=== PATIENT | male | born 1955 | race Caucasian/White ===

== ENCOUNTER 2021-07-09 07:50 | Emergency (ER) | payer MEDICARE, BC ==
[~2021-07-09] VITALS: Ht 182.9 cm; Wt 123.2 kg
--- NOTE | 2021-07-09 08:36 | EKG ---
[address] [address] Test Date: 2021-07-09 Test Time: 08:31:37 Pat Name: JEB HSIEH Department: Room: Gender: M Freight Booker: ELEUTERIO : 1955 Requested By: RACIEL WHITNEY Order Number: [id number] Reading MD: Chetan Petersen Measurements Intervals [place] Rate: 66 P: 34 TN: 170 QRS: -49 QRSD: 118 T: 69 QT: 440 QTc: 463 Interpretive Statements SINUS RHYTHM ABNORMAL LEFT AXIS DEVIATION LEFT ANTERIOR FASCICULAR BLOCK Electronically Signed On 07-12-2021 16:36:10 HAND STONECUTTER by Chetan Petersen
--- NOTE | 2021-07-09 08:49 | PHYS DOC ---
Past History Past Surgical History: Other Additional Past Surgical Histo: artificial heart valve, angelica-en-y, lumbar, Alcohol Use: None General Adult EDM: Chief Complaint: ABDOMINAL PAIN HPI: HPI: 65-year-old male past medical history of aortic valve replacement on Coumadin since 2011, [id number] diabetes, hypertension, hyperlipidemia and morbid obesity, presents the ED with his , (patient consents to his/her/their knowledge and involvement in pts' medical care), with complaints of painful bruising over his abdomen for the past few days with associated nausea, dizziness and lack of appetite. Reports he checks his INR every Thursday- was 4.1 yesterday and held his Coumadin last night. Was told to take 5 mg today and tomorrow and then go back to his normal dose of 7.5 mg. States he was seen at [facility] for cough, sneezing and runny nose 1 week ago. Was told he had the common cold. Was not tested for Covid or influenza. Was prescribed Augmentin and Tessalon Perles and told he had an ear infection. Patient's last bowel movement was on Thursday, normal brown color. Past surgical history of lumbar 1 and 5 fusion and Angelica-en-Y surgery in 2007. Has been vaccinated for Covid. Has not had his influenza vaccine. Denies any history of alcohol abuse. Review of Systems: Review of Systems: Constitutional: Denies fever or chills Eyes: Denies change in visual acuity HENT: Denies nasal congestion or sore throat Respiratory: Denies cough or shortness of breath Cardiovascular: Denies chest pain or edema GI: Denies vomiting, bloody stools or diarrhea : Denies dysuria or hematuria Musculoskeletal: Denies back pain or joint pain Integument: Denies desquamation or blistering lesions Neurologic: Denies headache, focal weakness or sensory changes Endocrine: Denies polyuria or polydipsia Lymphatic: Denies swollen glands Psychiatric: Denies depression or anxiety Current Medications: Current Meds: Current Medications Medications (Trade) Dose Ordered Sig/Robert Start Time Stop Time Status Last Admin Dose Admin Iohexol (Omnipaque 300 Mg/ml) 75 ml 1X ONCE 07/09/21 08:30 07/09/21 08:31 DC Sodium Chloride 1,000 ml @ 1,000 mls/hr 1X ONCE 07/09/21 08:30 07/09/21 09:29 Allergies: Allergies: Allergies Coded Allergies Type Severity Reaction Last Updated Verified latex Allergy Unknown 07/09/21 Yes Physical Exam: PE: Constitutional: Well developed, well nourished, no acute distress, non-toxic appearance. HENT: Normocephalic, atraumatic, Eyes: EOMI, conjunctiva normal, no discharge. Neck: Normal range of motion, supple, Cardiovascular: S1/2 present, regular rhythm Lungs & Thorax: Speaking in full sentences, bilateral equal chest rise, no tachypnea or increased work of breathing Abdomen: soft, yellow bruising over right upper quadrant and mid and upper abdomen with painful 5x10cm mass/lump, petechiae contusions over right lower abdomen and in right lower mid axillary line, no farmer turners sign, + reports ruq and epigastric palpation causes pain at bruising sites Skin: Warm, dry, Back: No tenderness, no CVA tenderness. [] Extremities: No tenderness, no cyanosis, no unilateral lower extremity edema ( h/o LLE infected hematoma), varicose veins and hemosiderin deposition/vascular disease present Neurologic: Alert and oriented X 3, normal motor function, normal sensory function, no focal deficits noted. [] Psychologic: Affect normal, judgement normal, mood normal. [] Current Patient Data: Vital Signs: Vital Signs Date Time Temp Pulse Resp B/P (MAP) Pulse Ox O2 Delivery O2 Flow Rate FiO2 07/09/21 08:07 98.0 74 16 97 Room Air EKG: EKG: Sinus rhythm 66 bpm, left axis deviation, QTC 463, T wave inversion aVL, no ST elevation or ST depression, no active chest pain Radiology/Procedures: Radiology/Procedures: [] IMAGING REPORT Signed PATIENT: JEB HSIEH LACCOUNT: [id number] : 1955 LOCATION: ER AGE: 65 SEX: M EXAM STATUS: REG ER ORD. PHYSICIAN: RACIEL WHITNEY DO REASON: upper abd pain w/bruising on coumadin. REDUCED OMNI 300 60 ML PROCEDURE: CT ABD PELV W/ IV CONTRST ONLY CT ABDOMEN+PELVIS W History: Reason: upper abd pain w/bruising on coumadin. REDUCED OMNI 300 60 ML / Spl. Instructions: / History: Technique: After the administration of intravenous contrast, CT imaging was performed of the abdomen and pelvis. Multiplanar images are reviewed. Exposure: One or more of the following individualized dose reduction techniques were utilized for this examination: 1. Automated exposure control 2. Adjustment of the mA and/or kV according to patient size 3. Use of iterative reconstruction technique. Comparison: None Findings: Lower chest: 4 mm left lower lobe pleural-based nodule (series 2 image 6. 2 mm left lower lobe pulmonary nodule (image 8). Small hiatal hernia. Abdomen and pelvis: The liver, spleen, adrenal glands, pancreas and gallbladder are unremarkable. No biliary ductal dilatation. Punctate nonobstructing right inferior intrarenal calculus. No hydronephrosis. Small left inferior renal hypodensity measures 0.6 cm, likely cyst. Normal appendix. No evidence of bowel obstruction. Postop changes gastric bypass. No pathologic lymphadenopathy. No ascites. Right rectus sheath hematoma measures up to 5.3 cm anterior posterior by 9.9 cm transverse by 11.5 cm craniocaudal. There are fluid fluid levels within the hematoma, can be seen with anticoagulation use. No active contrast extravasation noted. There is right lateral and right anterior abdominal wall subcutaneous edema. Small fat-containing umbilical hernia. Moderate atheromatous plaque throughout the nonaneurysmal abdominal aorta and branch vessels. Bones: Subacute left sixth and seventh anterior rib fractures. Chronic right- sided rib fractures. Multilevel thoracolumbar spondylosis most prominent L2-L3 with canal narrowing.. Chronic L3 compression fracture. Impression: 1. Right rectus sheath hematoma with fluid fluid levels. No active contrast extravasation. Recommend follow-up. 2. Anterior and lateral abdominal wall subcutaneous edema, may relate to contusions. 3. Subacute left sixth and seventh anterior rib fractures. 4. Small nonobstructing right inferior intrarenal calculus. Electronically signed by: Flash Carson DO (07/09/2021 9:54 AM) [id number] DICTATED AND SIGNED BY: FLASH CARSON DO DATE: 07/09/21 0941 CC: RACIEL WHITNEY DO; DEMETRIUS SERNA ~MTH0 0 IMAGING REPORT Signed PATIENT: JEB HSIEH LACCOUNT: [id number] : 1955 LOCATION: ER AGE: 65 SEX: M EXAM STATUS: REG ER ORD. PHYSICIAN: RACIEL WHITNEY DO REASON: ruq pain PROCEDURE: CHEST AP ONLY XR CHEST 1V History: Reason: ruq pain / Spl. Instructions: / History: Comparison: None. Findings: No consolidation or pleural effusion. Normal heart size. No pneumothorax. Chronic left-sided rib fractures. Advanced glenohumeral DJD. Prior median sternotomy. Chronic left midclavicular fracture. Impression: 1. No acute cardiopulmonary process. Electronically signed by: Flash Carson DO (07/09/2021 8:51 AM) [id number] DICTATED AND SIGNED BY: FLASH CARSON DO DATE: 07/09/21849 CC: RACIEL WHITNEY DO; DEMETRIUS SERNA ~MTH0 0 Heart Score: C/O Chest Pain: No Risk Factors: Risk Factors: DM, Current or recent (<one month) smoker, HTN, HLP, family history of CAD, obesity. Risk Scores: Score 0 - 3: 2.5% MACE over next 6 weeks - Discharge Home Score 4 - 6: 20.3% MACE over next 6 weeks - Admit for Clinical Observation Score 7 - 10: 72.7% MACE over next 6 weeks - Early Invasive Strategies Course & Med Decision Making: Course & Med Decision Making Pertinent Labs and Imaging studies reviewed. (See chart for details) Concern for large rectus sheath hematoma in the setting of supratherapeutic INR, renal insufficiency, normocytic anemia and lactic acidosis with no prior levels for comparison. Patient resting comfortably in the emergency department. Is hemodynamically stable-map remains above 65. Will admit for further medical management and monitoring. Will transfer to [facility] for higher level of care/surgical and IR services. Patient accepted by Dr. Skelton. Patient stable at time of transfer and him and his agree with this plan. I have spoken with the patient and/or caregivers. I have explained the p atient's condition, diagnosis and treatment plan based on the information available to me at this time. I have answered the patient's and/or caregivers questions and answered any concerns. The patient and/or caregivers have as good an understanding of the patient's diagnosis, condition and treatment plan as can be expected at this point. The patient has been stabilized within the capability of the emergency department. The patient will be transported for further care and management or will be moved to an observation or inpatient service. I have communicated with the staff or medical practitioner taking over this patient's care. Marcela Disclaimer: Marcela Disclaimer: This electronic medical record was generated, in whole or in part, using a voice recognition dictation system. Departure Departure: Impression: Primary Impression: Abdominal wall hematoma Additional Impressions: Elevated INR Renal insufficiency Lactic acidosis Normocytic anemia Disposition: 02 [facility] (To [facility], accepted by Dr. Skelton) Condition: STABLE Referrals: DEMETRIUS SERNA (PCP) RACIEL WHITNEY DO Jul 09, 2021 08:49
--- NOTE | 2021-07-09 08:54 | RAD ---
XR CHEST 1V History: Reason: ruq pain / Spl. Instructions: / History: Comparison: None. Findings: No consolidation or pleural effusion. Normal heart size. No pneumothorax. Chronic left-sided rib frac tures. Advanced glenohumeral DJD. Prior median sternotomy. Chronic left midclavicular fracture. Impression: 1. No acute cardiopulmonary process. Electronically signed by: Flash Carson DO (07/09/2021 8:51 AM) [id number]
[2021-07-09 08:58] LABS: BASO % 0 % (0-3); EOS # 0.1 x10^3/uL (0.0-0.7); EOS % 1 % (0-3); HEMATOCRIT 32.9 % (39.0-53.0); HEMOGLOBIN 10.7 g/dL (13.0-17.5); LYMPH # 0.7 x10^3/uL (1.0-4.8); LYMPH % 8 % (24-48); MEAN CORPUSCULAR HEMOGLOBIN 26 pg (25-35); MEAN CORPUSCULAR HGB CONC 33 g/dL (31-37); MEAN CORPUSCULAR VOLUME 81 fL (79-100); MONO % 11 % (0-9); NEUT # 7.6 x10^3uL (1.8-7.7); NEUT % 80 % (31-73); PLATELET COUNT 229 x10^3/uL (140-400); RED BLOOD COUNT 4.07 x10^6/uL (4.30-5.70); RED CELL DISTRIBUTION WIDTH 16.9 % (11.5-14.5); WHITE BLOOD COUNT 9.5 x10^3/uL (4.0-11.0)
[2021-07-09] MEDS: IV NORMAL SALINE 1,000ML 1,000 ML IV ONE (09:06)
[2021-07-09 09:09] LABS: CALCIUM 8.5 mg/dL (8.5-10.1); CREATININE 1.4 mg/dL (0.7-1.3); GFR 50.9; POTASSIUM 4.3 mmol/L (3.5-5.1)
[2021-07-09 09:15] LABS: ALBUMIN 3.3 g/dL (3.4-5.0); TOTAL BILIRUBIN 1.1 mg/dL (0.2-1.0); TOTAL PROTEIN 6.5 g/dL (6.4-8.2)
[2021-07-09 09:15] LABS: INFLUENZA A PATIENT NEGATIVE (NEGATIVE); INFLUENZA B PATIENT NEGATIVE (NEGATIVE)
[2021-07-09] MEDS: IOHEXOL 300 MG/ML 75 ML VIAL. IV ONE (09:17)
--- NOTE | 2021-07-09 09:56 | RAD ---
CT ABDOMEN+PELVIS W History: Reason: upper abd pain w/bruising on coumadin. REDUCED OMNI 300 60 ML / Spl. Instructions: / History: Technique: After the administration of intravenous contrast, CT imaging was performed of the abdomen and pelvis. Multiplanar images are reviewed. Exposure: One or more of the following individualized dose reduction techniques were utilized for thi s examination: 1. Automated exposure control 2. Adjustment of the mA and/or kV according to patient size 3. Use of iterative reconstruction technique. Comparison: None Findings: Lower chest: 4 mm left lower lobe pleural-based nodule (series 2 image 6. 2 mm left lower lobe pulmon tino nodule (image 8). Small hiatal hernia. Abdomen and pelvis: The liver, spleen, adrenal glands, pancreas and gallbladder are unremarkable. No biliary ductal dilatation. Punctate nonobstructing right inferior intrarenal calculus. No hydronephrosis. Small left inferior re nal hypodensity measures 0.6 cm, likely cyst. Normal appendix. No evidence of bowel obstruction. Postop changes gastric bypass. No pathologic lymph adenopathy. No ascites. Right rectus sheath hematoma measures up to 5.3 cm anterior posterior by 9.9 cm transverse by 11.5 cm craniocaudal. There are fluid fluid levels within the hematoma, can be seen with anticoagulation use . No active contrast extravasation noted. There is right lateral and right anterior abdominal wall tinsley bcutaneous edema. Small fat-containing umbilical hernia. Moderate atheromatous plaque throughout the nonaneurysmal abdominal aorta and branch vessels. Bones: Subacute left sixth and seventh anterior rib fractures. Chronic right-sided rib fractures. Mul tilevel thoracolumbar spondylosis most prominent L2-L3 with canal narrowing.. Chronic L3 compression fracture. Impression: 1. Right rectus sheath hematoma with fluid fluid levels. No active contrast extravasation. Recommend follow-up. 2. Anterior and lateral abdominal wall subcutaneous edema, may relate to contusions. 3. Subacute left sixth and seventh anterior rib fractures. 4. Small nonobstructing right inferior intrarenal calculus. Electronically signed by: Flash Carson DO (07/09/2021 9:54 AM) [id number]
[2021-07-09 11:43] LABS: BACTERIA,URINE 0 /HPF (0-FEW); BILIRUBIN,URINE NEG (NEG); CLARITY,URINE CLEAR; COLOR,URINE YELLOW; GLUCOSE,URINE >=1000 mg/dL (NEG); NITRITE,URINE NEG (NEG); RBC,URINE OCC /HPF (0-2); SQUAMOUS EPITHELIAL CELL,UR FEW /LPF; UROBILINOGEN,URINE 0.2 mg/dL (0.2 mg/dL)
[2021-07-09] MEDS: HYDROmorphone PF 1 MG/ML DISP.SYRIN IVP ONE ×3 (13:12→17:23)
[2021-07-09] MEDS ORDERED: ONDANSETRON PF 4 MG/2 ML VIAL. ONE (19:30)
[2021-07-09] MEDS: ONDANSETRON PF 4 MG/2 ML VIAL. IVP ONE ×2 (19:56→19:58)
[2021-07-10] MEDS ORDERED: HYDROmorphone PF 1 MG/ML DISP.SYRIN ONE (02:27)
[2021-07-10] MEDS: IV RINGERS SOLUTION,LACTATED 1,000 ML IV ONE (02:35)
[2021-07-10] MEDS: HYDROmorphone PF 1 MG/ML DISP.SYRIN IVP ONE ×3 (02:40→18:14)
[2021-07-10 08:11] LABS: CALCIUM 8.7 mg/dL (8.5-10.1); CREATININE 1.7 mg/dL (0.7-1.3); GFR 40.7; POTASSIUM 4.9 mmol/L (3.5-5.1)
[2021-07-10 08:13] LABS: BASO % 0 % (0-3); EOS % 0 % (0-3); HEMATOCRIT 29.3 % (39.0-53.0); HEMOGLOBIN 9.3 g/dL (13.0-17.5); LYMPH # 1.1 x10^3/uL (1.0-4.8); LYMPH % 6 % (24-48); MEAN CORPUSCULAR HEMOGLOBIN 26 pg (25-35); MEAN CORPUSCULAR HGB CONC 32 g/dL (31-37); MEAN CORPUSCULAR VOLUME 83 fL (79-100); MONO # 1.4 x10^3/uL (0.0-1.1); MONO % 8 % (0-9); NEUT # 16.4 x10^3uL (1.8-7.7); NEUT % 86 % (31-73); PLATELET COUNT 291 x10^3/uL (140-400); RED BLOOD COUNT 3.54 x10^6/uL (4.30-5.70); RED CELL DISTRIBUTION WIDTH 16.6 % (11.5-14.5); WHITE BLOOD COUNT 18.9 x10^3/uL (4.0-11.0)
--- NOTE | 2021-07-10 08:15 | RAD ---
Exam: Fernandez scale and the right anterior abdominal wall Indication: Reason: evaluate hematoma abd. wall- / Spl. Instructions: Per Dr Gabriel do in a.m., renae ting on bed at [facility] / History: . Comparison: CT from 07/09/2021 Findings/ Impression: Targeted ultrasound involving the right anterior abdominal wall reveals a nonvascular, heterogeneousl y hypoechoic collection corresponding to the large hematoma residing in the anterior abdominal rectus sheath. Size of the collection is too large to measure sonographically. The appearance is consistent with a large hematoma. Electronically signed by: Awais Mcpherson DO (07/10/2021 8:12 AM) [id number]
[2021-07-10] MEDS ORDERED: ONDANSETRON PF 4 MG/2 ML VIAL. ONE (11:34)
[2021-07-10] MEDS: ONDANSETRON PF 4 MG/2 ML VIAL. IVP ONE (11:35)
[2021-07-10 12:53] LABS: % LYMPHS 8 % (24-48); % MONOS 3 % (0-10); % SEGS 89 % (35-66)
[2021-07-10 12:54] LABS: PLT ESTIMATE ADEQUATE (ADEQUATE)
[2021-07-11 04:27] LABS: BASO % 0 % (0-3); EOS % 0 % (0-3); HEMATOCRIT 24.5 % (39.0-53.0); LYMPH % 6 % (24-48); MEAN CORPUSCULAR HEMOGLOBIN 27 pg (25-35); MEAN CORPUSCULAR HGB CONC 33 g/dL (31-37); MEAN CORPUSCULAR VOLUME 81 fL (79-100); MONO # 1.3 x10^3/uL (0.0-1.1); MONO % 7 % (0-9); NEUT # 15.1 x10^3uL (1.8-7.7); NEUT % 87 % (31-73); PLATELET COUNT 275 x10^3/uL (140-400); RED BLOOD COUNT 3.01 x10^6/uL (4.30-5.70); RED CELL DISTRIBUTION WIDTH 16.8 % (11.5-14.5); WHITE BLOOD COUNT 17.4 x10^3/uL (4.0-11.0)
[2021-07-11] MEDS: IV RINGERS SOLUTION,LACTATED 1,000 ML IV ONE (04:34)
[2021-07-11] MEDS: MORPHINE SULFATE 4 MG/ML DISP.SYRIN. IV ONE (04:36)
[2021-07-11 04:37] LABS: CALCIUM 8.4 mg/dL (8.5-10.1); CREATININE 1.7 mg/dL (0.7-1.3); GFR 40.7; POTASSIUM 4.4 mmol/L (3.5-5.1)
[2021-07-11] MEDS: ONDANSETRON PF 4 MG/2 ML VIAL. IVP ONE (04:37)
--- NOTE | 2021-07-11 05:42 | RAD ---
CT ABDOMEN+PELVIS WO INDICATION: ab hematoma re-eval, getting bigger EXAM: Noncontrast CT of the abdomen and pelvis. Coronal and sagittal reformatted images were perform ed. PQRS compliance statement: One or more of the following individualized dose reduction techniques were utilized for this examinat ion: 1. Automated exposure control 2. Adjustment of the mA and/or kV according to patient size 3. Use of iterative reconstruction technique COMPARISON: 07/09/2020 FINDINGS: Lower chest: The visualized lower lungs are aerated. No pleural or pericardial effusion. ABDOMEN: Liver: The noncontrast liver is homogeneous in attenuation. Gallbladder and biliary: Normal gallbladder without radiopaque stone. Normal caliber bile ducts. Spleen: Normal spleen. Pancreas: The noncontrast pancreas is homogeneous in attenuation without peripancreatic inflammatory changes. Adrenal glands: Normal adrenal glands. Kidneys and ureters: Bilateral nonobstructive renal calculi. No hydronephrosis. GI tract: Postsurgical changes of gastric bypass. Small hiatal hernia. Normal caliber small bowel and colon. Normal appendix. Vascular structures: Normal caliber abdominal aorta. Lymph nodes: No lymphadenopathy in the abdomen or pelvis. Moderate aortoiliac atherosclerotic disease . PELVIS: Genitourinary system: Distended urinary bladder. SKELETAL STRUCTURES AND SOFT TISSUES: Degenerative changes of the spine. Increasing size of right rec tus sheath hematoma, now extending deep to the rectus sheath down into the extraperitoneal pelvis to the level of the symphysis pubis, measuring 14.7 x 8.0 x 30 cm (TV by AP by CC), previously 13.2 x 4. 9 x 12.9 cm when measured in the same fashion. Trace amount of blood is now seen in the right paracol ic gutter. Extensive right abdominal wall subcutaneous stranding IMPRESSION: Increased size of very large right rectus sheath hematoma, now extending deep to the abdominal muscul ature and down into the extraperitoneal pelvis. Trace blood also noted within the right paracolic gut ter. FOR INTERNAL CODING PURPOSES Critical result: Findings discussed with Dr. Gunter at 07/11/2021 5:00 AM. RESULT CODE: (C) Electronically signed by: Bijan Franks MD (07/11/2021 5:39 AM) [facility] HOSPITALSailaja
[2021-07-11 06:41] VITALS: BP 109/56
[2021-07-11] MEDS ORDERED: PHYTONADIONE (VIT K1) IV 5 MG in IV NORMAL SALINE 50ML 50 ML IV ONE (07:00)
== END 2021-07-11 07:00 | disposition short-term general hospital (02) ==
LOC: ER 07:50
DX: S30.1XXA Contusion of abdominal wall, initial encounter (principal); N28.9 Disorder of kidney and ureter, unspecified; E87.2 Acidosis; D64.9 Anemia, unspecified; R79.0 Abnormal level of blood mineral; I10 Essential (primary) hypertension; E78.5 Hyperlipidemia, unspecified; E66.01 Morbid (severe) obesity due to excess calories; Z20.822 Contact with and (suspected) exposure to COVID-19; Z68.36 Body mass index [BMI] 36.0-36.9, adult; Z91.040 Latex allergy status; X58.XXXA Exposure to other specified factors, initial encounter; Y93.89 Activity, other specified; Y92.89 Other specified places as the place of occurrence of the external cause; Y99.8 Other external cause status
CPT/HCPCS: 36415; 71045; 74176; 74177; 80048; 80053; 81001; 82550; 83605; 83690; 83735; 84484; 85007; 85018; 85025; 85610; 85730; 86850; 86900; 86901; 86920; 87040; 87426; 87804; 93005; 96361; 96374; 96375; 96376; J1170; J2270; J2405; J7120; Q9967; U0003; 99285-25; J7030